=== PATIENT | female | born 1960 | race Two or more races ===

== ENCOUNTER 2017-12-04 08:27 | Emergency (ER) | payer SELFPAY ==
[2017-12-04 08:56] LABS: BILIRUBIN,URINE SMALL (NEG); CLARITY,URINE CLEAR; COLOR,URINE YELLOW; GLUCOSE,URINE NEGATIVE (NEG); NITRITE,URINE NEGATIVE (NEG); PH,URINE 5.5; PROTEIN,URINE NEGATIVE (NEG-TRACE); UROBILINOGEN,URINE 0.2 mg/dL (0.2 mg/dL)
[2017-12-04 09:04] LABS: ADD MAN DIFF? NO
[2017-12-04 09:06] LABS: WBC,URINE 0 /HPF (0-4)
[2017-12-04 09:07] LABS: BACTERIA,URINE 0 /HPF (0-FEW); SQUAMOUS EPITHELIAL CELL,UR FEW /LPF
[2017-12-04] MEDS: IV NORMAL SALINE 1000ML BAG 1,000 ML IV ×2 (09:12)
[2017-12-04] MEDS: KETOROLAC 30 MG/ML INJ. IV ×2 (09:13)
[2017-12-04] MEDS: ONDANSETRON PF 4 MG/2 ML VIAL. IV ×2 (09:13)
[2017-12-04 09:20] LABS: BASO # 0.1 x10^3/uL (0.0-0.2); BASO % 1 % (0-3); EOS # 0.1 x10^3/uL (0.0-0.7); EOS % 1 % (0-3); HEMATOCRIT 40.5 % (36.0-47.0); HEMOGLOBIN 13.7 g/dL (12.0-15.5); LYMPH # 2.9 x10^3/uL (1.0-4.8); LYMPH % 30 % (24-48); MEAN CORPUSCULAR HEMOGLOBIN 29 pg (25-35); MEAN CORPUSCULAR HGB CONC 34 g/dL (31-37); MEAN CORPUSCULAR VOLUME 86 fL (79-100); MONO # 0.4 x10^3/uL (0.0-1.1); MONO % 4 % (0-9); NEUT # 6.3 x10^3uL (1.8-7.7); NEUT % 65 % (31-73); PLATELET COUNT 330 x10^3/uL (140-400); RED BLOOD COUNT 4.72 x10^6/uL (3.50-5.40); WHITE BLOOD COUNT 9.8 x10^3/uL (4.0-11.0)
[2017-12-04 09:21] LABS: ANION GAP 11 (6-14); BLOOD UREA NITROGEN 13 mg/dL (7-20); BUN/CREATININE RATIO 16 (6-20); CALCIUM 9.5 mg/dL (8.5-10.1); CARBON DIOXIDE 23 mmol/L (21-32); CHLORIDE 104 mmol/L (98-107); CREATININE 0.8 mg/dL (0.6-1.0); GFR 74.2; GLUCOSE 124 mg/dL (70-99); POTASSIUM 3.9 mmol/L (3.5-5.1); SODIUM 138 mmol/L (136-145)
[2017-12-04 09:28] LABS: ALBUMIN 3.8 g/dL (3.4-5.0); ALBUMIN/GLOBULIN RATIO 0.8 (1.0-1.7); ALK PHOS 101 U/L (46-116); ALT (SGPT) 17 U/L (14-59); AST (SGOT) 15 U/L (15-37); LIPASE 67 U/L (73-393); TOTAL BILIRUBIN 0.5 mg/dL (0.2-1.0); TOTAL PROTEIN 8.7 g/dL (6.4-8.2)
[2017-12-04] MEDS ORDERED: IOHEXOL 300 MG/ML 100ML VIAL. IV ×2 (09:45)
[2017-12-04] MEDS ORDERED: CONTRAST GIVEN MC ×2 (09:45)
[2017-12-04] MEDS: HYDROcodone/APAP 5/325MG 1 TAB TABLET PO ×2 (12:25)
== END 2017-12-04 12:34 | disposition home or self-care (01) ==
LOC: ER 08:27
DX: M54.31 Sciatica, right side (principal); R10.31 Right lower quadrant pain; Z98.51 Tubal ligation status
CPT/HCPCS: 36415; 72100; 74177; 80053; 81001; 83690; 85025; 96361; 96374; 96375; 99285-25; J1885; J2405; J7030